=== PATIENT | female | born 1970 | race Caucasian/White ===

== ENCOUNTER 2025-02-13 13:56 | Outpatient (REF) | payer OTHER, SELFPAY ==
[2025-02-13 16:25] LABS: Hematocrit 44.8 % (37.0-47.0); Hemoglobin 15.7 g/dl (12.0-16.0); Mean Corpuscular Hemoglobin 31.7 pg (27.0-33.0); Mean Corpuscular Volume 90.3 fL (80.0-98.0); Platelet Count 226 X10*3/uL (160-400); Red Blood Count 4.96 X10*6/uL (4.20-5.50); Red Cell Distribution Width 12.9 % (11.0-16.0); White Blood Count 6.7 X10*3/uL (4.8-10.8)
[2025-02-13 17:31] LABS: Vitamin B12 378 pg/mL (200-900)
[2025-02-13 18:04] LABS: Folate 6.3 ng/mL (> or = 4.0)
[2025-02-13 19:19] LABS: Alanine Aminotransferase 10 U/L (0-31); Albumin Level 4.3 g/dL (3.5-5.0); Alkaline Phosphatase 84 U/L (39-117); Anion Gap 12 (12-20); Aspartate Amino Transferase 22 U/L (5-31); Bilirubin Total 0.5 mg/dL (0.0-1.0); Blood Urea Nitrogen 15 mg/dL (9-16); C Reactive Protein < 0.10 mg/dL (< or = 0.50); Calcium 9.6 mg/dL (8.4-10.2); Carbon Dioxide 27 mmol/L (22-29); Chloride 106 mmol/L (96-108); Estimated Glomerular Filt Rate > 60; Glucose Random 76 mg/dL (60-115); Lipase 261 U/L (8-78); Sodium 141 mmol/L (135-145); Total Protein 6.9 g/dL (6.5-8.0)
[2025-02-13 19:26] LABS: TSH reflex Free T4 1.89 uIU/mL (0.32-4.0)
[2025-02-14 09:24] LABS: H Pylori Breath Test Negative (Negative)
[2025-02-14 22:14] LABS: Transglutaminase IgA <1.0 U/mL
[2025-02-18 17:32] LABS: Vitamin D 25-OH, D2 <4 ng/mL; Vitamin D 25-OH, D3 65 ng/mL; Vitamin D 25-OH, Total 65 ng/mL (30-100)
== END 2025-02-13 13:57 | disposition home or self-care (01) ==
LOC: HO.LAB 13:56
PROVIDERS: PCP Internal Medicine; Visit Provider Nurse Practitioner Family
DX: K21.9 Gastro-esophageal reflux disease without esophagitis (principal); R19.7 Diarrhea, unspecified; K58.9 Irritable bowel syndrome, unspecified; E55.9 Vitamin D deficiency, unspecified; R13.12 Dysphagia, oropharyngeal phase; R13.10 Dysphagia, unspecified; R10.13 Epigastric pain; R14.0 Abdominal distension (gaseous); K59.01 Slow transit constipation
CPT/HCPCS: 36415; 80053; 82306; 82607; 82746; 83013; 83690; 84443; 85027; 86140; 86364; 99202

== ENCOUNTER 2025-02-13 13:56 | Outpatient (AMB) | payer OTHER, SELFPAY ==
--- NOTE | 2025-02-13 14:05 | MHC.OFFVIS ---
Vital Signs 02/13/25 14:16 Height 5 ft 4 in Weight 175 lb 0.752 oz BMI 30.0 BP 110/54 L Blood Pressure Location Rt brachial Position Sitting Pulse 66 Pulse Source Pulse Oximeter Pulse Oximetry (%) 96 Oxygen Delivery Method Room Air Intake Visit Reasons: Colonoscopy Screening Intake Note: NEW PATIENT for initial colo screening. FMHx reported. Chief Complaint; C/O constipation and diarrhea intermittently, mucus in stool, N+V intermittently, reflux. Pt also reports hx of dysphagia but also states that this is somewhat per her baseline as she has had uvula complications since adolescence. No additional concerns at this time. Social Welfare Clerk Required: No Accompanied by: Family/Other Allergies carisoprodol [From [employer]] Allergy (Unknown, Unverified 02/13/25 14:05) Unknown codeine Allergy (Unknown, Unverified 02/13/25 14:05) Unknown medroxyprogesterone Allergy (Unknown, Unverified 02/13/25 14:05) Unknown Penicillins Allergy (Unknown, Unverified 02/13/25 14:05) Unknown HPI HPI Colonoscopy Screening: Details: 54 year old? female with past medical history of anxiety, degenerative disc disease, depression, insomnia, dysphagia, odynophagia, GERD, psoriasis is here today for pre colonoscopy screening.? Patient was sent to us by her PCP.? This is her first colonoscopy screening.? 10 years years ago patient reports symptoms of severe acid reflux, unable to hold anything down. Patient lost several lb upper endoscopy was done eventually and patient was found to have gastric ulcers. Patient was placed on treatment. Denies any personal or family history of gastrointestinal disease, colon polyps, or CRC.? Denies history of difficulty with sedation or anesthesia in the past.? Currently patient is experiencing worsening symptoms of acid reflux, ongoing dysphagia and odynophagia. Currently not on any PPI. Patient reports constipation although occasionally patient will have a postprandial loose stools PFSH Medical History (Updated 02/18/25 @ 17:31 by Dee Aranda MANAGER OF INTERNAL AUDIT-) Dysphagia Odynophagia Insomnia Depression Degenerative disc disease, lumbar Anxiety Surgical History (Updated 02/13/25 @ 14:18 by CHRISTIAN Scales) History of esophagogastroduodenoscopy Family History Father Stomach cancer Social History Alcohol intake: current Comment: Rare occasions Patient Tobacco Use Status: Current everyday Tobacco user Cigarette Packs Per Day: 1 Review of Systems Const Denies weight gain and Denies weight loss ENT Reports no additional complaints, Reports dysphagia and Denies odynophagia Card Reports no additional complaints Resp Reports no additional complaints GI Reports abdominal pain (Epigastric), Denies belching, Denies melena, Reports bloating, Denies change in bowel habits, Reports constipation, Reports dysphagia, Denies excessive flatus, Denies dyspepsia, Reports heartburn, Denies diarrhea, Reports loose stools, Denies nausea, Denies odynophagia and Denies vomiting Reports no additional complaints Musc Reports no additional complaints Neuro Reports no additional complaints Psych Reports no additional complaints Endo Reports no additional complaints Physical Exam Vital Signs: Last Vital Signs Pulse 66 02/13/25 14:16 BP 110/54 L 02/13/25 14:16 Pulse Ox 96 02/13/25 14:16 Oxygen Delivery Method Room Air 02/13/25 14:16 BMI result Body Mass Index 30.0 Const General: healthy appearing, no acute distress and well developed Nutritional Appearance: well nourished and obese Orientation/consciousness: patient oriented x3 Resp Effort & Inspection: normal respiratory effort, able to speak in complete sentences, no tracheal deviation and symmetric chest movement Auscultation: clear to auscultation bilaterally Cardio Rate: regular rate GI Inspection: Yes normal to inspection, No distended and Yes obesity Palpation (GI): Soft to palpation, not firm, nontender and No hepatosplenomegaly present Auscultation: normal bowel sounds General: Yes no CVA tenderness Back/Spine/Pelvis Back: no CVA tenderness Skin General skin exam: elasticity normal, turgor normal and dry skin Neuro General: patient oriented x3 Psych Appearance: grossly normal Mental Status: mental status grossly normal Assessment & Plan Assessment & Plan (1) Dysphagia: Code(s): R13.10 - Dysphagia, unspecified Category: Medical Qualifiers: Dysphagia type: oropharyngeal phase Qualified Code(s): R13.12 - Dysphagia, oropharyngeal phase (2) Odynophagia: Code(s): R13.10 - Dysphagia, unspecified Category: Medical (3) Postprandial epigastric pain: Code(s): R10.13 - Epigastric pain (4) GERD (gastroesophageal reflux disease): Code(s): K21.9 - Gastro-esophageal reflux disease without esophagitis Qualifiers: Esophagitis presence: esophagitis presence not specified Qualified Code(s): K21.9 - Gastro-esophageal reflux disease without esophagitis (5) Postprandial abdominal bloating: Code(s): R14.0 - Abdominal distension (gaseous) (6) Constipation: Code(s): K59.00 - Constipation, unspecified Qualifiers: Constipation type: slow transit constipation Qualified Code(s): K59.01 - Slow transit constipation Plan Will check lab works, CBC and comprehensive metabolic panel as well as thyroid study. Will do H pylori breath test in the office today. Patient is not on any PPI. We will treat empirically if positive. Will check transglutaminase, lipase. Patient reports postprandial loose stools, however for the most part she is constipated. Will check CRP and fecal calprotectin. Will check her lipase to make sure she does not have chronic pancreatitis. Patient will be sent for upper GI series with barium swallow. She will start taking senna daily to help her move her bowels. Patient will call our office if you have any GI concerning symptoms. Follow-up in 3 months, sooner on as needed basis. She is agreeable to this plan and verbalizes understanding of instructions. She was given the opportunity to ask questions and all questions answered. Thank you for allowing me to participate in her care Orders: Orders Comprehensive Met. Panel 02/13/25 K21.9 - Gastro-esophageal reflux disease without esophagitis Complete Blood Count no Diff 02/13/25 K21.9 - Gastro-esophageal reflux disease without esophagitis TSH reflex Free T4 02/13/25 K59.00 - Constipation, unspecified Vitamin D 25-OH (D2 and D3) 02/13/25 E55.9 - Vitamin D deficiency, unspecified H Pylori Breath Test 02/13/25 K21.9 - Gastro-esophageal reflux disease without esophagitis Transglutaminase IgA 02/13/25 R10.9 - Unspecified abdominal pain Lipase 02/13/25 R10.9 - Unspecified abdominal pain Vitamin B12 and Folate 02/13/25 R19.7 - Diarrhea, unspecified C Reactive Protein 02/13/25 K58.9 - Irritable bowel syndrome, unspecified Calprotectin, Fecal 02/13/25 R15.9 - Full incontinence of feces FL upper GI w Ba Swallow 02/13/25 K21.9 - Gastro-esophageal reflux disease without esophagitis Medications: New sennosides (Natural Senna Laxative) 17.2 mg (2 x 8.6 mg) PO BEDTIME 60 tabs 3RF constipation K59.00 - Constipation, unspecified pantoprazole take one tablet half an hour before breakfast 40 mg PO DAILY 30 tabs 2RF K21.9 - Gastro-esophageal reflux disease without esophagitis Coding Level of Care Code New Pt Level 4 (58686) Diagnoses Oropharyngeal dysphagia R13.12 Dysphagia type: oropharyngeal phase Odynophagia R13.10 Postprandial epigastric pain R10.13 Gastroesophageal reflux disease, unspecified whether esophagitis present K21.9 Esophagitis presence: esophagitis presence not specified Postprandial abdominal bloating R14.0 Slow transit constipation K59.01 Constipation type: slow transit constipation Time Spent (min) 50 Comment 35 minute spent with patient and additional 15 minutes spent reviewing her records
[2025-02-13 14:16] VITALS: BP 110/54; PULSE 66; O2SAT 96
== END 2025-02-13 15:27 | disposition home or self-care (01) ==
PROVIDERS: PCP Internal Medicine; Visit Provider Nurse Practitioner Family
DX: R13.12 Dysphagia, oropharyngeal phase (principal); R13.10 Dysphagia, unspecified; R10.13 Epigastric pain; K21.9 Gastro-esophageal reflux disease without esophagitis; R14.0 Abdominal distension (gaseous); K59.01 Slow transit constipation
CPT/HCPCS: 99204

== ENCOUNTER 2025-02-15 10:27 | Outpatient (REF) | payer OTHER, SELFPAY | END 2025-02-15 10:28 | disposition home or self-care (01) | LOC: HO.LAB 10:27 | PROVIDERS: PCP Internal Medicine; Visit Provider Nurse Practitioner Family | DX: Z13.89 Encounter for screening for other disorder (principal) ==

== ENCOUNTER 2025-02-16 17:20 | Outpatient (REF) | payer OTHER, SELFPAY ==
[2025-02-24 04:24] LABS: Pancreatic Elastase-1 595 mcg/g (>200)
== END 2025-02-16 17:21 | disposition home or self-care (01) ==
LOC: HO.LNP 17:20
PROVIDERS: Visit Provider Nurse Practitioner Family
DX: R10.9 Unspecified abdominal pain (principal)
CPT/HCPCS: 82656

== ENCOUNTER 2025-05-16 09:01 | Outpatient (REF) | payer OTHER, SELFPAY ==
--- OUTSIDE RECORDS SUMMARY | 2023-05-27 07:00 | XMS_ITS | Continuity of Care Document ---
Author Organization [facility] MD VELÁSQUEZ Address [address] [place] [address] [address] [place] [address] Phone Care Team Providers Care Cash Applications Analyst Name Role Phone Kim Talbert MD, FACS, RVT Unavailable Unavailable Procedures Procedure Date Duplex Scan-extrem Veins; Comp Offic Cons New/estab Mod 40 Mi Advance Directives Directive Yes / No Effective Date File Name No Information Encounters Encounter Description Practice Location Reason(s) For Visit Diagnoses Date Provider Providers Copied on Encounter [facility], [address] [place] [address] Dr Toussaint [address], [id number], tel:[phone] [facility] [place] Chronic venous htn w oth comp of bilateral low extrm 3 Bryn Gaffney. [address] [facility] [address], [place], [address], [place]. tel:[phone] Referring Provider: Mk Sands, [address] [facility] [address], [place], [address]. tel:[phone] Offic Cons New/estab Mod 40 Ne [facility] MD [facility], [address] [place] [address] Dr Toussaint [address]Farhan [place], [id number], tel:[phone] [facility] [place] Pain in right lower legPain in left lower legPain in right legPain in left legRestless legs syndromeFlail joint, unspecified jointCramp and spasm 3 Bryn JUARES FACS RVT RPVI Kim Gaffney. [address] [facility], [address], [place], [address], [place]. tel:[phone] Referring Provider: Mk Douglass MD M, [address] [facility] [address], [place], [address]. tel:[phone] Family History Family Member Type Diagnosis Age At Onset No Information Payers Payer name Insurance type Covered green party ID Authoriza tineeru(s) Self Pay 09 Social History Type Description Quantity Date Captured Comments Sex Female Smoking Status No Information Chief Complaint And Reason For Visit No Information Reason For Referral Reason For Referral No Information Plan Of Treatment Date Type Action Status Goal Diet education completed Goal Tobacco cessation counseling completed Referral Ordered: Weight management: Referral to physician timeframe: 3 Months (related to Body mass index (BMI) 29.0-29.9, adult) ordered History Of Present Illness Encounter Date Complaint History Of Prese nt Illness No Information Functional Status Date Functional Assessmen t No Information Instructions Date Instruction Additional Infor mation Diet education Related to Body mass index (BMI) 29.0-29.9, adult Giving Encouragement to exercise Related to Body mass index (BMI) 29.0-29.9, adult Lifestyle education Related to B eduardo mass index (BMI) 29.0-29.9, adult Compression stocking usage as conservative measure Related to Pain in right lower leg Patient education booklet given Related to Pain in right lower leg Assessments Type Assessment Date No Information Patient Care Teams Name Effective Dates (start - stop) Status Members No Information
--- NOTE | ~2025-05-16 | FL_ITS ---
EXAMINATION: XR FLUOROSCOPY UPPER GI SERIES CLINICAL INFORMATION: Patient complaining of food getting episodically stuck in upper esophagus; globus sensation; GERD. COMPARISON: None TECHNIQUE: Fluoroscopic air contrast upper GI examination was performed utilizing standard techniques with thin and thick barium and effervescent granules. Numerous spot images were obtained. Several fluoroscopic image hold cine sequences were also obtained. FINDINGS: UPPER GI SERIES: Lateral cine images of the oropharynx and hypopharynx demonstrate normal swallow mechanism with normal epiglottic inversion and soft palate elevation. No laryngeal penetration, glottic or subglottic aspiration identified. No nasopharyngeal reflux present. Hypopharyngeal structures appear normal without evidence of mass or diverticulum. There was no significant cricopharyngeal achalasia. Dual and single contrast images of the esophagus demonstrate normal caliber, contour, and mucosal pattern. No evidence of stricture, mass, or ulcerations identified. Esophageal peristalsis was minimally disordered. Small type I hiatus hernia. Mild gastroesophageal reflux seen during the course of the examination. Dual contrast and single contrast images of the stomach demonstrated normal contour and mucosal pattern without evidence of mass or gross ulceration. Mildly thickened gastric rugal folds observed, suggesting mild gastritis. Contrast freely passed into the gastric antrum and duodenal bulb without delay. Single and air-contrast images of the duodenal bulb demonstrate no abnormality. The duodenal sweep has a normal appearance, course, and mucosal fold appearance. There is a tiny third segment duodenal diverticulum. FLUOROSCOPY TIME: 3 minutes 36 seconds Number of Spot Images:10 Number of cines obtained: 13 DOSE AREA PRODUCT: 3638 uGy-m2 (microgray-meter squared) FL/FL upper GI w air w Ba Swallow IMPRESSION: 1. Small type I hiatus hernia. 2. Minimally disordered esophageal peristalsis. 3. Mild gastroesophageal reflux observed during the course of the exam. 4. Mildly thickened gastric rugal folds, suggesting mild gastritis. Electronically signed by: Paul Larson MD 05/16/2025 10:20 AM EDT
--- OUTSIDE RECORDS SUMMARY | 2025-05-16 09:21 | XMS_ITS | Clinical Summary ---
Author Organization [facility] Address [address] [place] [address] Phone Care Team Providers Care Auto Mechanic Supervisor Name Role Phone Mk Douglass MD Primary Care Provider [phone] Encounters Date Type Department Care Team Description 04/24/2025 1:15 PM EDT - 04/24/2025 11:59 PM EDT [facility] at [address] [address] Encounter for screening mammogram for breast cancer Discharge Disposition: Home or Self Care 04/11/2025 Lab Requisition [facility] - Main Lab [address] [facility] [place] [address] Alesia Danielson MD Encounter for gynecological examination (general) (routine) without abnormal findings from Last 3 Months Family History Medical History Relation Name Comments Breast cancer Mother's Sister Relation Name Status Comments Mother's Sister Alive Social History Tobacco Use Types Packs/Day Years Used Date Smoking Tobacco: Never Assessed Comments No Sex and Gender Information Value Date Recorded Sex Assigned at Not on file Legal Sex Female 9:11 AM EST Gender Identity Not on file Sexual Orientation Not on file Obstetrics History Para Term AB IAB SAB Ectopic Multiple Livin g Live Births 1 Last Filed Vital Signs Vital Sign Reading Time Taken Comments Blood Pressure - - Pulse - - Temperature - - Respiratory Rate - - Oxygen Saturation - - Inhaled Oxygen Concentration - - Weight 74.8 kg (165 lb) 04/24/2025 1:48 PM EDT Height 162.6 cm (5' 4 ) 04/24/2025 1:48 PM EDT Body Mass Index 28.32 04/24/2025 1:48 PM EDT Plan of Treatment Health Maintenance Due Date Last Done Comments Hepatitis B Vaccines (1 of 3 - 19+ 3-dose series) 1987 Pneumococcal Vaccine: 50+ Years (2 of 2 - PCV) 2018 02/16/2017 Zoster Vaccines (1 of 2) 2018 Colorectal Cancer Screening: Colonoscopy 10/12/2022 Depression Screening 10/12/2022 HIV Screening 10/12/2022 Hepatitis C Screening 10/12/2022 Social Influencers of Health Screening 10/12/2022 COVID-19 Vaccine (3 - 2023-2 5 season) 2024 07/23/2021, 07/02/2021 Influenza Vaccine (#1) 2025 6, 09/16/2007 DTaP,Tdap,and Td Vaccines (3 - Td or Tdap) 02/16/2027 02/16/2017, 07/10/2006 Breast Cancer Screening 04/24/2027 04/24/20, 12/25/2023 Cervical Cancer Screening: P ap Smear 04/10/2028 04/10/2025 HIB Vaccines Aged Out No longer eligi ble based on patient's age to complete this topic HPV Vaccines Aged Out No longer eligi ble based on patient's age to complete this topic Hepatitis A Vaccines Aged Out No long er eligible based on patient's age to complete this topic IPV Vaccines Aged Out No longer eligi ble based on patient's age to complete this topic MMR Vaccines Aged Out No longer eligi ble based on patient's age to complete this topic Meningococcal ACWY Vaccine Aged Out N o longer eligible based on patient's age to complete this topic Meningococcal B Vaccine Aged Out No l onger eligible based on patient's age to complete this topic RSV Immunization Patients Under 20 months Aged Out No longer eligible b ased on patient's age to complete this topic Varicella Vaccines Aged Out No longer eligible based on patient's age to complete this topic Procedures Procedure Name Priority Date/Time Associated Diagnosis Comments MG MAMMO DIGITAL SCREENING W WEI BILAT Routine 04/24/2025 1:49 PM EDT Encounter for screening mammogram for breast cancer PAP SMEAR Routine 04/10/2025 12:00 AM EDT Encounter for gynecological examination (general) (routine) without abnormal findings from Last 3 Months Results * MG Mammo Digital Screening w Wei bilat (04/24/2025 1:49 PM EDT) Anatomical Region Laterality Modality Breast Bilateral Mammography 04/25/2025 8:45 AM EDT Impressions 04/25/2025 8:47 AM EDT No mammographic evidence of malignancy. A negative mammogram in the presence of a clinically suspicious palpable abnormality does not preclude the possibility of malignancy or alter the indications for biopsy. PQRI CPT II 3341F Code 85973, 58891 PQRI 225 CPT II 7025F TISSUE DENSITY: The breasts are almost entirely fatty. (BI-RADS Category A) IMPRESSION: Benign. BI-RADS CATEGORY: 1 - NEGATIVE RECOMMENDATION: Screening bilateral mammogram is recommended in 1 year. Mammo Location: [facility], [address] [place] [address] -------- FINAL REPORT -------- Dictated By: Alverto Baum Dictated Date: 04/25/2025 08:45 ET Assigned Physician: Alverto Baum Reviewed and Electronically Signed By: Alverto Baum Signed Date: 04/25/2025 08:47 ET Workstation ID: [id number] Transcribed By: Self Edit Transcribed Date: 04/25/2025 08:45 ET Narrative 04/25/2025 8:47 AM EDT CLINICAL: The patient is a 54 years Female presenting for routine screening mammography. The patient has a family history of breast cancer involving a paternal aunt. COMPARISON: 12/21/2023 and 02/17/2019. TECHNIQUE: Full-field digital mammography of the breasts bilaterally consisting of tomosynthesis in MLO and CC projection is performed in the [employer] 2000-D unit. Computer aided detection utilizing the iCAD system was utilized. FINDINGS: The breasts are again seen to be largely fatty replaced. There is no cluster of microcalcifications, mass, or area of architectural distortion. There is no skin thickening or nipple retraction. Procedure Note Alverto Baum MD - 04/25/2025 CLINICAL: The patient is a 54 years Female presenting for routinescreening mammography. The patient has a family history of breast cancerinvolving a paternal aunt. COMPARISON: 12/21/2023 and 02/17/2019. TECHNIQUE: Full-field digital mammography of the breasts bilaterallyconsisting of tomosynthesis in MLO and CC projection is performed in theCollective [employer]he 2000-D unit. Computer aided detection utilizing the KS12Dsystem was utilized. FINDINGS: The breasts are again seen to be largely fatty replaced. Thereis no cluster of microcalcifications, mass, or area of architecturaldistortion. There is no skin thickening or nipple retraction. IMPRESSION: No mammographic evidence of malignancy. A negative mammogram in the presence of a clinically suspicious palpableabnormality does not preclude the possibility of malignancy or alter theindications for biopsy. PQRI CPT II 3341F Code 29478, 18172 PQRI 225 CPT II 7025F TISSUE DENSITY: The breasts are almost entirely fatty. (BI-RADS CategoryA) IMPRESSION: Benign. BI-RADS CATEGORY: 1 - NEGATIVE RECOMMENDATION: Screening bilateral mammogram is recommended in 1 year. Mammo Location: [facility], [address] [place] [address] -------- FINAL REPORT -------- Dictated By: Alverto Baum Dictated Date: 04/25/2025 08:45 ET Assigned Physician: Alverto Buam Reviewed and Electronically Signed By: Alverto Baum Signed Date: 04/25/2025 08:47 ET Workstation ID: [id number] Transcribed By: Self Edit Transcribed Date: 04/25/2025 08:45 ET us Self Referral Sppl IMG BI PROCEDURES Final Resul t * Pap smear (04/10/2025 12:00 AM EDT) Interpretation Negative for intraepithelial lesion or malignancy 04/13/2025 1:49 PM EDT [facility] General Categorization Negative 04/13/2025 1:49 PM EDT [facility] Specimen Adequacy Satisfactory for evaluation, endocervical/espinoza sformation zone component present 04/13/2025 1:49 PM EDT [facility] Pap Methodology Liquid Based Pap Test 04/13/2025 1:49 PM EDT [facility] Disclaimer The Pap test is a screening test which carries an inherent false negative rate. These test results should be correlated with the patient's clinical findings and history. This Pap test was processed using an automated screening system. Technical cytopathology services provided by [facility], at [address] [place] [address] (CLIA # [id number]/Ana Cristina Witt MD, Tool Inspector.) 04/13/2025 1:49 PM EDT [facility] Console Pap Interpretation Reported 04/13/2025 1:49 PM EDT [facility] Brushing/Spatula Cervix uteri structure / Unknown 04/10/2025 04/11/2025 7:07 AM EDT us Alesia Danielson MD LAB CYTOLOGY ORDERABLES Final Result [facility] [address] [place] [address], from Last 3 Months Insurance [facility] Care Teams Auto Mechanic Supervisor Relationship Specialty Start Date End Date Mk Douglass MD [address] [place] [id number] PCP - General Internal Medicine 04/24/25
== END 2025-05-16 09:02 | disposition home or self-care (01) ==
LOC: HO.XRAY 09:01
PROVIDERS: PCP Internal Medicine; Visit Provider Nurse Practitioner Family
DX: K21.9 Gastro-esophageal reflux disease without esophagitis (principal)
CPT/HCPCS: 74246

== ENCOUNTER → 2025-05-16 09:03 | Outpatient (BNV) | payer OTHER, SELFPAY | PROVIDERS: PCP Internal Medicine; Visit Provider Radiology Diagnostic Radiology | DX: K44.9 Diaphragmatic hernia without obstruction or gangrene (principal) | CPT/HCPCS: 74246 ==

== ENCOUNTER 2025-05-19 11:57 | Outpatient (AMB) | payer OTHER, SELFPAY ==
--- NOTE | 2025-05-19 12:04 | MHC.OFFVIS ---
Vital Signs 05/19/25 12:07 Height 5 ft 4 in Weight 175 lb BMI 30.0 BP 114/56 L Blood Pressure Location Lt brachial Position Sitting Pulse 73 Pulse Oximetry (%) 98 Oxygen Delivery Method Room Air Intake Visit Reasons: 3 mos FUV. Discuss colo/egd Intake Note: Patient 3 month follow up EGD/Colonoscopy discuss. Patient follow up Patient cc: abdominal pain with bloating, acid reflux with some burning sensation and med is helping, and swallowing difficulty on and off. Gis Analyst Developer Required: No Accompanied by: Spouse Allergies carisoprodol (From [employer]) Allergy (Unknown, Verified 05/19/25 12:07) Unknown codeine Allergy (Unknown, Verified 05/19/25 12:07) Unknown medroxyprogesterone Allergy (Unknown, Verified 05/19/25 12:07) Unknown Penicillins Allergy (Unknown, Verified 05/19/25 12:07) Unknown HPI HPI 3 mos FUV. Discuss colo/egd: Details: LAST VISIT: Dysphagia Odynophagia Postprandial epigastric pain GERD (gastroesophageal reflux disease) Postprandial abdominal bloating Constipation Plan Will check lab works, CBC and comprehensive metabolic panel as well as thyroid study. Will do H pylori breath test in the office today. Patient is not on any PPI. We will treat empirically if positive. Will check transglutaminase, lipase. Patient reports postprandial loose stools, however for the most part she is constipated. Will check CRP and fecal calprotectin. Will check her lipase to make sure she does not have chronic pancreatitis. Patient will be sent for upper GI series with barium swallow. She will start taking senna daily to help her move her bowels. Patient will call our office if you have any GI concerning symptoms. Follow-up in 3 months, sooner on as needed basis. She is agreeable to this plan and verbalizes understanding of instructions. She was given the opportunity to ask questions and all questions answered. ? Thank you for allowing me to participate in her care Orders Comprehensive Met. Panel 02/13/25 K21.9 Complete Blood Count no Diff 02/13/25 K21.9 TSH reflex Free T4 02/13/25 K59.00 Vitamin D 25-OH (D2 and D3) 02/13/25 E55.9 H Pylori Breath Test 02/13/25 K21.9 Transglutaminase IgA 02/13/25 R10.9 Lipase 02/13/25 R10.9 Vitamin B12 and Folate 02/13/25 R19.7 C Reactive Protein 02/13/25 K58.9 Calprotectin, Fecal 02/13/25 R15.9 FL upper GI w Ba Swallow 02/13/25 K21.9 New sennosides (Natural Senna Laxative) 17.2 mg (2 x 8.6 mg) PO BEDTIME 60 tabs 3RF constipation K59.00 pantoprazole take one tablet half an hour before breakfast 40 mg PO DAILY 30 tabs 2RF K21.9 TODAY'S VISIT Patient is here today for follow-up and to discuss lab and upper GI series. Patient also never had colonoscopy we will discuss going for procedure as well as going for upper endoscopy. Mild reflux identified with disorganized 1st doses on upper GI. All of her blood work was normal except for elevated lipase. Patient change her diet. She is avoiding dietary triggers. Currently if she is taking pantoprazole in her symptoms of acid reflux are suppressed. Patient denies dyspepsia, dysphagia or odynophagia. Denies melena, hematochezia, unintentional weight loss or ribbon like stools. Patient reports that she is moving her bowels better now that she is taking Senokot. Patient reports that no longer she has mucous in her stool since starting the senna. Patient is trying to follow low FODMAP diet as much as she can. Still has occasional left lower quadrant pain. Patient saw her OBGYN provider and was told that she no longer has fibroid. [facility] Medical History (Updated 02/18/25 @ 17:31 by Dee Aranda [facility]) Dysphagia Odynophagia Insomnia Depression Degenerative disc disease, lumbar Anxiety Surgical History History of esophagogastroduodenoscopy Family History Father Stomach cancer Social History Alcohol intake: current Comment: Rare occasions Patient Tobacco Use Status: Current everyday Tobacco user Cigarette Packs Per Day: 1 Review of Systems Const Denies weight gain and Denies weight loss ENT Reports no additional complaints, Reports dysphagia and Denies odynophagia Card Reports no additional complaints Resp Reports no additional complaints GI Reports abdominal pain (Epigastric), Denies belching, Denies melena, Reports bloating, Denies change in bowel habits, Reports constipation, Reports dysphagia, Denies excessive flatus, Denies dyspepsia, Reports heartburn, Denies diarrhea, Reports loose stools, Denies nausea, Denies odynophagia and Denies vomiting Reports no additional complaints Musc Reports no additional complaints Neuro Reports no additional complaints Psych Reports no additional complaints Endo Reports no additional complaints Physical Exam Vital Signs: Last Vital Signs Pulse 73 05/19/25 12:07 BP 114/56 L 05/19/25 12:07 Pulse Ox 98 05/19/25 12:07 Oxygen Delivery Method Room Air 05/19/25 12:07 BMI result Body Mass Index 30.0 Const General: healthy appearing, no acute distress and well developed Nutritional Appearance: well nourished and obese Orientation/consciousness: patient oriented x3 Resp Effort & Inspection: normal respiratory effort, able to speak in complete sentences, no tracheal deviation and symmetric chest movement Auscultation: clear to auscultation bilaterally Cardio Rate: regular rate GI Inspection: Yes normal to inspection, No distended and Yes obesity Palpation (GI): Soft to palpation, not firm, nontender and No hepatosplenomegaly present Auscultation: normal bowel sounds General: Yes no CVA tenderness Back/Spine/Pelvis Back: no CVA tenderness Skin General skin exam: elasticity normal, turgor normal and dry skin Neuro General: patient oriented x3 Psych Appearance: grossly normal Mental Status: mental status grossly normal Results Reviewed Results Reviewed: Laboratory Tests 02/13/25 02/13/25 02/16/25 15:00 15:24 10:15 AST 22 ALT 10 Alkaline Phosphatase 84 C-Reactive Protein < 0.10 Lipase 261 H Vitamin B12 378 25-OH Vitamin D Total 65 Folate 6.3 TSH 1.89 Stool Pancreat Elastase 595 Tiss Transglutamin IgA <1.0 H. pylori Breath Test Negative UPPER GI SERIES WITH BARIUM SWALLOW IMPRESSION: 1. Small type I hiatus hernia. 2. Minimally disordered esophageal peristalsis. 3. Mild gastroesophageal reflux observed during the course of the exam. 4. Mildly thickened gastric rugal folds, suggesting mild gastritis. Assessment & Plan Assessment & Plan (1) Odynophagia: Code(s): R13.10 - Dysphagia, unspecified Category: Medical (2) Dysphagia: Code(s): R13.10 - Dysphagia, unspecified Category: Medical Qualifiers: Dysphagia type: oropharyngeal phase Qualified Code(s): R13.12 - Dysphagia, oropharyngeal phase (3) Postprandial epigastric pain: Code(s): R10.13 - Epigastric pain (4) Gastroesophageal reflux disease: Code(s): K21.9 - Gastro-esophageal reflux disease without esophagitis Qualifiers: Esophagitis presence: esophagitis presence not specified Qualified Code(s): K21.9 - Gastro-esophageal reflux disease without esophagitis (5) Constipation: Code(s): K59.00 - Constipation, unspecified Qualifiers: Constipation type: slow transit constipation Qualified Code(s): K59.01 - Slow transit constipation Plan Patient will continue taking pantoprazole daily. Avoid dietary triggers and late night snacking. Staying upright for minimal 3 hours after meals discussed with patient. Patient will continue taking Dulcolax. Increase fluid intake and activity to promote better bowel motility. All her lab work was discussed with her today. Patient will be going for upper endoscopy in her 1st colonoscopy. Patient denies any issues with anesthesia in the past. No history of sleep apnea. Not on any anticoagulation medication. Denies any cardiac or respiratory symptoms. What to expect before during and after procedure discussed with patient. Stressed the importance of good bowel prep and clear liquid diet day before procedure. Patient will follow-up after the procedure, sooner on as needed basis. She is agreeable to this plan and verbalizes understanding of instructions. She was given the opportunity to ask questions and all questions answered. Thank you for allowing me to participate in her care Coding Level of Care Code Est Pt Level 4 (38413) Complex EM visit Add On G2211 Diagnoses Odynophagia R13.10 Oropharyngeal dysphagia R13.12 Dysphagia type: oropharyngeal phase Postprandial epigastric pain R10.13 Gastroesophageal reflux disease, unspecified whether esophagitis present K21.9 Esophagitis presence: esophagitis presence not specified Slow transit constipation K59.01 Constipation type: slow transit constipation Time Spent (min) 40 Comment 25 minutes spent with patient and additional 15 minutes spent reviewing her records
[2025-05-19 12:07] VITALS: BP 114/56; PULSE 73; O2SAT 98
--- OUTSIDE RECORDS SUMMARY | 2025-05-19 12:21 | XMS_ITS | Clinical Summary ---
Author Organization [facility] Address [address] [place] [address] Phone Care Team Providers Care Legal Document Assistant Name Role Phone Mk Douglass MD Primary Care Provider [phone] Encounters Date Type Department Care Team Description 04/24/2025 1:15 PM EDT - 04/24/2025 11:59 PM EDT [facility] at [address] [address] Encounter for screening mammogram for breast cancer Discharge Disposition: Home or Self Care 04/11/[address] [facility] - Main Lab [address] [facility] [place] [address] Alesia Danielson MD Encounter for [...] for biopsy. PQRI CPT II 3341F Code 31538, 49495 PQRI 225 CPT II 7025F TISSUE DENSITY: The breasts are almost entirely fatty. (BI-RADS Category A) IMPRESSION: Benign. BI-RADS CATEGORY: 1 - NEGATIVE RECOMMENDATION: Screening bilateral mammogram is recommended in 1 year. Mammo Location: [facility], [address] [place] [address] -------- FINAL REPORT -------- Dictated By: Alverto Baum Dictated Date: 04/25/2025 08:45 ET Assigned Physician: Alverto Baum Reviewed and Electronically Signed By: Alverto Baum Signed Date: 04/25/2025 08:47 ET Workstation ID: [id number] Transcribed By: Self Edit Transcribed Date: 04/25/2025 [...] and CC projection is performed in the [employer] 2000-D unit. Computer aided detection utilizing the [...] MLO and CC projection is performed in the[employer]Activity[employer]he 2000-D unit. Computer aided detection utilizing the [employer] SacDsystem was utilized. FINDINGS: The breasts are again [...] for biopsy. PQRI CPT II 3341F Code 82648, 06512 PQRI 225 CPT II 7025F TISSUE DENSITY: The breasts are almost entirely fatty. (BI-RADS CategoryA) IMPRESSION: Benign. BI-RADS CATEGORY: 1 - NEGATIVE RECOMMENDATION: Screening bilateral mammogram is recommended in 1 year. Mammo Location: [facility], [address] [place] [address] -------- FINAL REPORT -------- Dictated By: Alverto Baum Dictated Date: 04/25/2025 08:45 ET Assigned Physician: Alverto Baum Reviewed and Electronically Signed By: Alverto Baum Signed Date: 04/25/2025 08:47 ET Workstation ID: [id number] Transcribed By: Self Edit Transcribed Date: 04/25/2025 08:45 ET us Self Referral Sppl IMG BI PROCEDURES Final Resul t * Pap smear (04/10/2025 12:00 AM EDT) Interpretation Negative for intraepithelial lesion or malignancy 04/13/2025 1:49 PM EDT [facility] General Categorization Negative 04/13/2025 1:49 PM EDT [facility] Specimen Adequacy Satisfactory for evaluation, endocervical/espinoza sformation zone component present 04/13/2025 1:49 PM EDT [facility] Pap Methodology Liquid Based Pap Test 04/13/2025 1:49 PM EDT [facility] Disclaimer The Pap test is a screening test which carries an inherent false negative rate. These test results should be correlated with the patient's clinical findings and history. This Pap test was processed using an automated screening system. Technical cytopathology services provided by [facility], at [address] [place] [address] (CLIA # [id number]/Ana Cristina Witt MD, Plumbing Instructor.) 04/13/2025 1:49 PM EDT [facility] Console Pap Interpretation Reported 04/13/2025 1:49 PM EDT [facility] Brushing/Spatula Cervix uteri structure / Unknown 04/10/2025 04/11/2025 7:07 AM EDT us Alesia Danielson MD LAB CYTOLOGY ORDERABLES Final Result [facility] [address] [place] [address], from Last 3 Months Insurance [facility] [employer] Care Teams Legal Document Assistant Relationship Specialty Start Date End Date Mk Douglass MD [address] [place] [id number] PCP - General Internal Medicine 04/24/25
== END 2025-05-19 12:34 | disposition home or self-care (01) ==
LOC: HO.HGI 11:58
PROVIDERS: PCP Internal Medicine; Visit Provider Nurse Practitioner Family
DX: R13.10 Dysphagia, unspecified (principal); R13.12 Dysphagia, oropharyngeal phase; R10.13 Epigastric pain; K21.9 Gastro-esophageal reflux disease without esophagitis; K59.01 Slow transit constipation
CPT/HCPCS: 99214; G2211

== ENCOUNTER → 2025-05-19 11:57 | Outpatient (BNVA) | payer OTHER, SELFPAY | PROVIDERS: PCP Internal Medicine; Visit Provider Nurse Practitioner Family | DX: R10.13 Epigastric pain (principal); K21.9 Gastro-esophageal reflux disease without esophagitis; K59.01 Slow transit constipation | CPT/HCPCS: 99212 ==

== ENCOUNTER 2025-07-17 08:19 | Day surgery (SDC) | payer OTHER, SELFPAY ==
--- OUTSIDE RECORDS SUMMARY | 2025-06-22 13:05 | XMS_ITS | Clinical Summary ---
Author Organization [facility] Address [address] [place] [address] Phone Care Team Providers Care Chemical Waste Management Technician Name Role Phone Mk Douglass MD Primary Care Provider [phone] Encounters Date Type Department Care Team Description 04/24/2025 1:15 PM EDT - 04/24/2025 11:59 PM EDT [facility] at [address] [address] Encounter for screening mammogram for breast cancer Discharge Disposition: Home or Self Care 04/11/2025 Lab Requisition [facility] - Main Lab [address] [facility] [place] [address] Alesia Danielson MD Encounter for [...] 2) 2018 Colorectal Cancer Screening: Colonoscopy 10/12/2022 HIV Screening 10/12/2022 Hepatitis C Screening 10/12/2022 Social Influencers of Health Screening 10/12/2022 COVID-19 Vaccine (3 - 2023-2 5 season) 2024 07/23/2021, 07/02/2021 Depression Screening 11/09/2024 Influenza Vaccine (#1) 2025 6, 09/16/2007 DTaP,Tdap,and Td Vaccines (3 - Td or Tdap) 02/16/2027 02/16/2017, 07/10/2006 Breast Cancer Screening 04/24/2027 04/24/20 25, 12/25/2023 Cervical Cancer Screening: P ap Smear [...] for biopsy. PQRI CPT II 3341F Code 37342, 57188 PQRI 225 CPT II 7025F TISSUE DENSITY: The breasts are almost entirely fatty. (BI-RADS Category A) IMPRESSION: Benign. BI-RADS CATEGORY: 1 - NEGATIVE RECOMMENDATION: Screening bilateral mammogram is recommended in 1 year. Mammo Location: [facility], [facility], [address] [place] [address] -------- FINAL REPORT -------- Dictated By: Alverto Baum Dictated Date: 04/25/2025 08:45 ET Assigned Physician: Alverto Baum Reviewed and Electronically Signed By: Alverto Baum Signed Date: 04/25/2025 08:47 ET Workstation ID: [id number] Transcribed By: Self Edit Transcribed Date: 04/25/2025 [...] and CC projection is performed in the [employer] 2000-D unit. Computer aided detection utilizing the [...] MLO and CC projection is performed in thePhormographe 2000-D unit. Computer aided detection utilizing the G[employer] CloudDsystem was utilized. FINDINGS: The breasts are again [...] for biopsy. PQRI CPT II 3341F Code 52469, 52013 PQRI 225 CPT II 7025F TISSUE DENSITY: The breasts are almost entirely fatty. (BI-RADS CategoryA) IMPRESSION: Benign. BI-RADS CATEGORY: 1 - NEGATIVE RECOMMENDATION: Screening bilateral mammogram is recommended in 1 year. Mammo Location: [facility], [address] [place] [id number] -------- FINAL REPORT -------- Dictated By: Alverto Baum Dictated Date: 04/25/2025 08:45 ET Assigned Physician: Alverto Baum Reviewed and Electronically Signed By: Alverto Baum Signed Date: 04/25/2025 08:47 ET Workstation ID: [id number] Transcribed By: Self Edit Transcribed Date: 04/25/2025 08:45 ET us Self Referral Sppl IMG BI PROCEDURES Final Resul t * Pap smear (04/10/2025 12:00 AM EDT) Interpretation Negative for intraepithelial lesion or malignancy 04/13/2025 1:49 PM EDT [facility] General Categorization Negative 04/13/2025 1:49 PM EDT [facility] Specimen Adequacy Satisfactory for evaluation, endocervical/espinoza sformation zone component present 04/13/2025 1:49 PM EDT [facility] Pap Methodology Liquid Based Pap Test 04/13/2025 1:49 PM EDT [facility] Disclaimer The Pap test is a screening test which carries an inherent false negative rate. These test results should be correlated with the patient's clinical findings and history. This Pap test was processed using an automated screening system. Technical cytopathology services provided by [facility], at [address] [place] [address] (CLIA # [id number]/Ana Cristina Witt MD, [employer] Athlete.) 04/13/2025 1:49 PM EDT [facility] Console Pap Interpretation Reported 04/13/2025 1:49 PM EDT [facility] Brushing/Spatula Cervix uteri structure / Unknown 04/10/2025 04/11/2025 7:07 AM EDT us Alesia Danielson MD LAB CYTOLOGY ORDERABLES Final Result [facility] [address] [place] [address], from Last [address] [facility] Care Teams Chemical Waste Management Technician Relationship Specialty Start Date End Date Mk Douglass MD [address] [place] [id number] PCP - General Internal Medicine 04/24/25
--- NOTE | 2025-07-14 10:54 | HO.ANESPROP2 ---
Documented by User: Bianca Odonnell NP 07/14/25 10:54 HPI - Anesthesia Eval Consult details Narrative: 54 yr old female for upper endoscopy, colonoscopy PMF Active Problems Active Problems: All Active Problems (Updated 02/18/25 @ 17:31 by Dee Aranda, [facility]) Odynophagia (Acute) Dysphagia (Acute) Past Medical History Medical History (Updated 07/17/25 @ 08:46 by Alvin Sanders MD) Smoker Dysphagia Odynophagia Insomnia Degenerative disc disease, lumbar Anxiety Family History Family History Father Stomach cancer Surgical History Surgical History (Updated 07/17/25 @ 08:45 by Perla Hassan RN) Hx of section History of esophagogastroduodenoscopy Social History Social History Are you a primary care team assistant to a significant other at home: No Do you presently have visiting nurse or other home services: No Alcohol intake: current Comment: Rare occasions Patient Tobacco Use Status: Current everyday Tobacco user Tobacco use type: Cigarette Cigarette Packs Per Day: 1 Smoked in Last 30 Days: Yes Patient Interested in Nicotine Replacement: No Have you been hit, kicked, punched, or otherwise hurt by someone within the past year? If so, by whom?: No Are you DNR?: No Advance Directives: No Advance Directives Information Provided: Yes Poor oral hygiene: No Meds Allergies Allergy/AdvReac Type Severity Reaction Status Date / Time carisoprodol (From Soma) Allergy Unknown Unknown Verified 07/17/25 08:31 codeine Allergy Unknown Unknown Verified 07/17/25 08:31 medroxyprogesterone Allergy Unknown Unknown Verified 07/17/25 08:31 Penicillins Allergy Unknown Unknown Verified 07/17/25 08:31 Home Medications ?Medication ?Instructions ?Recorded ?Confirmed ?Last Taken ?Type ascorbic acid 100 mg-zinc sulfate tab PO 02/09/25 Unknown History 200 mg tablet cholecalciferol (vitamin D3) 25 25 mcg PO DAILY 02/09/25 07/17/25 Unknown History mcg (1,000 unit) capsule crisaborole 2 % topical ointment 1 appl topical DAILY 02/09/25 07/17/25 Unknown History (Eucrisa) cyanocobalamin (vitamin B-12) 1,000 mcg PO DAILY 02/09/25 07/17/25 Unknown History 1,000 mcg capsule lorazepam 0.5 mg tablet 0.5 mg PO DAILY PRN Anxiety 02/09/25 07/13/25 Unknown History multivitamin 1 tab PO DAILY 02/09/25 07/17/25 Unknown History cyclosporine 0.05 % eye drops in a 1 drp ophthalmic (eye) Q12H 02/13/25 07/13/25 Unknown History dropperette (Restasis) Exam Height,Weight and Vital Signs: Height 5 ft 4 in Weight 79.379 kg Documented by User: Alvin Sanders MD 07/17/25 08:50 [facility] Past Medical History Medical History (Updated 07/17/25 @ 08:46 by Alvin Sanders MD) Smoker Dysphagia Odynophagia Insomnia Degenerative disc disease, lumbar Anxiety Cognitive capacity: normal Family History Family History Father Stomach cancer Family history of problems with anesthesia: No Surgical History Surgical History (Updated 07/17/25 @ 08:45 by Perla Hassan RN) Hx of section History of esophagogastroduodenoscopy History of Problems with Anesthesia: No Social History Social History Are you a primary care team assistant to a significant other at home: No Do you presently have visiting nurse or other home services: No Alcohol intake: current Comment: Rare occasions Patient Tobacco Use Status: Current everyday Tobacco user Tobacco use type: Cigarette Cigarette Packs Per Day: 1 Smoked in Last 30 Days: Yes Patient Interested in Nicotine Replacement: No Have you been hit, kicked, punched, or otherwise hurt by someone within the past year? If so, by whom?: No Are you DNR?: No Advance Directives: No Advance Directives Information Provided: Yes Poor oral hygiene: No Meds Allergies Allergy/AdvReac Type Severity Reaction Status Date / Time carisoprodol (From [employer]) Allergy Unknown Unknown Verified 07/17/25 08:31 codeine Allergy Unknown Unknown Verified 07/17/25 08:31 medroxyprogesterone Allergy Unknown Unknown Verified 07/17/25 08:31 Penicillins Allergy Unknown Unknown Verified 07/17/25 08:31 Home Medications ?Medication ?Instructions ?Recorded ?Confirmed ?Last Taken ?Type ascorbic acid 100 mg-zinc sulfate tab PO 02/09/25 Unknown History 200 mg tablet cholecalciferol (vitamin D3) 25 25 mcg PO DAILY 02/09/25 07/17/25 Unknown History mcg (1,000 unit) capsule crisaborole 2 % topical ointment 1 appl topical DAILY 02/09/25 07/17/25 Unknown History (Eucrisa) cyanocobalamin (vitamin B-12) 1,000 mcg PO DAILY 02/09/25 07/17/25 Unknown History 1,000 mcg capsule lorazepam 0.5 mg tablet 0.5 mg PO DAILY PRN Anxiety 02/09/25 07/13/25 Unknown History multivitamin 1 tab PO DAILY 02/09/25 07/17/25 Unknown History cyclosporine 0.05 % eye drops in a 1 drp ophthalmic (eye) Q12H 02/13/25 07/13/25 Unknown History dropperette (Restasis) Exam Airway Mallampati Class: III TM Dist: >3cm Neck ROM: Full Loose/Missing/Broken Teeth: No Heart: RRR Lungs: Cta Assessment and Plan Assessment Anesthesia Assessment: Anesthesia Plan Discussed Final Anesthetic Review Family History of Problems with Anesthesia: No History of Problems with Anesthesia: No NPO: Yes ASA Class: II Final Preanesthetic Review: No Changes in Pt Med Stat, Meds/Allgs Chart Reviewed, Consent Obtained/Reviewed and Anes Risks/Benef Reviewed Patient Risk: Low Procedure Risk: Low Anesthetic Plan Anesthetic Plan: MAC: Disposition: Standard PACU
--- NOTE | 2025-07-17 07:30 | P.HPSUR_ITS ---
Pre-Procedural Eval Section A - 24 Hr Update-Section A only Date of Service: 07/17/25 The patient is an INPATIENT: No The patient has been examined within 24 hours of the surgical procedure. The History & Physical has been completed within 30 days and I have reviewed it.: No Section B - Complete if H&P > 30 days Chief Complaint: screening, GERD, dysphagia Relevant Family History (Specify if Yes): Yes Relevant Social History: Tobacco Use Present Medications: see Short Stay Collaborative assessment Medical History: Significant History (Dysphagia Odynophagia Insomnia Depression Degenerative disc disease, lumbar Anxiety) History of Previous Operations: Relevant previous surgery/procedure and date(s) (History of upper endoscopy) Allergies: Allergies Allergy/AdvReac Type Severity Reaction Status Date / Time carisoprodol (From [employer]) Allergy Unknown Unknown Verified 05/19/25 12:07 codeine Allergy Unknown Unknown Verified 05/19/25 12:07 medroxyprogesterone Allergy Unknown Unknown Verified 05/19/25 12:07 Penicillins Allergy Unknown Unknown Verified 05/19/25 12:07 Review of Systems Sugical H&P ROS: Negative: Constitution, Cardiovascular, Respiratory and Gastrointestinal Exam Surgical H&P Exam: Normal: Heart, Normal: Lungs, Normal: Extremities and Normal: Abdomen Plan Diagnosis/Plan: Unchanged I have reviewed the history and physical and performed a pertinent physical examination on my patient. No changes have occurred unless specified. Time Spent With Patient Time: Total time managing care of this patient today ____ minutes.
[2025-07-17 08:26] VITALS: BMI 28.5
[2025-07-17] MEDS: Lactated Ringers 1,000 ML 100 ML IVCONT (08:36)
[2025-07-17 08:43] VITALS: BP 117/69; PULSE 76; RESP 18; TEMP 36.6; O2SAT 97
--- NOTE | 2025-07-17 09:58 | P.OPN-COLO_ITS ---
Colonoscopy Operative Note Operative Note Date of Service: 07/17/25 Narrative: FLEXIBLE TRANSORAL UPPER GASTROINTESTINAL ENDOSCOPY WITH BIOPSIES AND COLONOSCOPY TILL CECUM WITH SNARE POLYPECTOMY, SUBMUCOSAL INJECTION AND HEMOCLIP PLACEMENT Pre-op diagnosis: Colon cancer screening (first colon), GERD Post-op diagnosis: GERD, Gastritis, Colon Polyps, Diverticulosis, hemorrhoids Endoscopist:? Jan Manuel MD Anesthesia:?MAC UPPER ENDOSCOPY Consent: Indications for the procedure and potential complications of bleeding, perforation, reaction to medications and missed diagnosis were discussed with the patient and informed consent was obtained. Instrument: Olympus GIF H 190 mid size upper endoscope Monitoring: Vital signs and clinical assessment, continuous EKG monitoring, Pulse oximetry, Carbon Dioxide monitoring and blood pressure monitoring were done throughout the procedure. Procedure: The patient was placed in the left lateral decubitis position and pre-procedure medications were administered and a bite block was placed. The endoscope was inserted into the mouth and advanced under direct vision to the third part of duodenum. A careful inspection was made as the upper endoscope was withdrawn including a retroflexed examination of the proximal stomach; Findings and interventions are described below. Findings: Larynx: Normal Esophagus: GE junction at 34 cms, small hiatal hernia 34 to 36 cms. Friable appearing esophageal mucosa - biopsies were obtained No esophagitis or Ling's. Stomach: Moderate diffuse gastric erythema - biopsies were obtained from the antrum. Grade 2 flap valve on retroflexed examination of the cardia. Duodenum: Normal bulb and descending duodenum Intervention: Biopsies as noted above COLONOSCOPY PROCEDURE NOTE Instrument: Olympus PCF H 190 L variable stiffness pediatric colonoscope Monitoring: Vital signs and clinical assessment, intermittent blood pressure monitoring, continuous EKG monitoring, Pulse oximetry and Carbon Dioxide monitoring were done throughout the procedure. Please see anesthesia flowsheet. Colon withdrawl time was 48 minutes. Procedure: The patient was placed in the left lateral decubitis position and pre-procedure medications were administered. After a digital rectal examination of the ano-rectum, the video colonoscope was inserted into the rectum and advanced through the colon to the cecum. The colonoscope was slowly withdrawn in a retrograde panoramic fashion and the colon mucosa was carefully examined including a retroflexed view of the rectum. Findings and interventions are described below. Procedure Difficulty: without difficulty Findings: Terminal Ileum: Not evaluated Cecum: Normal Ascending Colon: A 10 - 12 mm sessile polyp in the distal AC - removed with a hot snare. A 7-8 mm sessile polyp in the distal AC - removed with a hot snare Transverse Colon: Normal Descending Colon: A 7-8 mm sessile polyp - removed with a hot snare Sigmoid Colon: A 12-15 mm sessile polyp - removed with a hot snare and polyp was not retrieved. Moderate diverticulosis Rectum: A 2 cms sessile polyp at 8 cms - removed with a hot snare. A 5 cms villous appearing polyp with a broad base at 6 cms. Polyp was removed piecemeal with a hot snare. Polypectomy site was closed with 3 hemoclips and marked by Georgie ink. Ano-rectum: Small internal hemorrhoids Colon preparation: Good after some irrigation. [place] Bowel Preparation Scale Right colon; 2 Transverse colon: 2 Left colon; 2 (0 = Unprepared colon segment with mucosa not seen due to solid stool that cannot be cleared. 1 = Portion of mucosa of the colon segment seen, but other areas of the colon segment not well seen due to staining, residual stool and/or opaque liquid. 2 = Minor amount of residual staining, small fragments of stool and/or opaque liquid, but mucosa of colon segment seen well. 3 = Entire mucosa of colon segment seen well with no residual staining, small fragments of stool or opaque liquid) Impression and Post Procedure Diagnosis: Endoscopy Findings: ESOPHAGUS: Small hiatal hernia 34 to 36 cms. Friable appearing esophageal mucosa - biopsies were obtained No esophagitis or Ling's. STOMACH: Moderate diffuse gastritis DUODENUM: Normal Colonoscopy Findings: Six medium to large sized polyps were removed Moderate diverticulosis seen in the sigmoid colon small hemorrhoids on retroflexed exam. Plan: Pt has a FU appointment on 08/08/25 with Camilla Aranda NP Repeat Flexible sigmoidoscopy (with colon prep) in 4-8 weeks to check polypectomy site in the rectum A summary of above findings and relevant handouts were given to the patient. BIOPSIES SHOWED: A. Stomach, antrum, biopsy: Gastric antral mucosa within normal limits; negative for Helicobacter pylori, intestinal metaplasia and dysplasia. B. Stomach, body, biopsy: Gastric body mucosa within normal limits; negative for Helicobacter pylori, intestinal metaplasia and dysplasia. C. Esophagus, distal, biopsy: Squamous mucosa within normal limits; negative for inflammation (including intraepithelial eosinophils), fungal organisms, intestinal metaplasia and dysplasia. D. Esophagus, mid, biopsy: Squamous mucosa within normal limits; negative for inflammation (including intraepithelial eosinophils), fungal organisms, intestinal metaplasia and dysplasia. E. Esophagus, proximal, biopsy: Squamous mucosa within normal limits; negative for inflammation (including intraepithelial eosinophils), fungal organisms, intestinal metaplasia and dysplasia. F. Colon, ascending, polypectomy x2: Tubular adenoma (2); negative for high- grade dysplasia. G. Colon, right, biopsy: Colonic mucosa within normal limits; negative for active, chronic or microscopic colitis. H. Colon, descending, polypectomy: Tubular adenoma; negative for high-grade dysplasia. I. Rectum, polypectomy x 2: Tubulovillous adenoma, multiple fragments, with focal high-grade dysplasia 07/25/25 Pt called and biopsy results were reviewed with her. She was advised to schedule a FU Flex Sig in 4 to 6 weeks to check polypectomy site in the rectum She reported constant LLQ pain (before her endoscopic procedures) and constant diarrhea after her procedures which appears to be subsiding
[2025-07-17 11:03] VITALS: BP 114/66; PULSE 63; RESP 20; TEMP 36.3; O2SAT 98
[2025-07-17 11:18] VITALS: BP 141/66; PULSE 56; RESP 20; TEMP 36.7; O2SAT 96
== END 2025-07-17 11:46 | disposition home or self-care (01) ==
PROVIDERS: PCP Internal Medicine; Visit Provider Internal Medicine Gastroenterology
PROC: (CPT 45385; principal; 2025-07-17 09:20)
DX: Z12.11 Encounter for screening for malignant neoplasm of colon (principal); D12.2 Benign neoplasm of ascending colon; D12.4 Benign neoplasm of descending colon; D12.8 Benign neoplasm of rectum; K57.30 Diverticulosis of large intestine without perforation or abscess without bleeding; K64.8 Other hemorrhoids; K21.9 Gastro-esophageal reflux disease without esophagitis; K29.60 Other gastritis without bleeding; K44.9 Diaphragmatic hernia without obstruction or gangrene; F17.210 Nicotine dependence, cigarettes, uncomplicated
CPT/HCPCS: 45385; 45381; 43239; 88305; 88313; 88342; J2003; J2704

== ENCOUNTER → 2025-07-17 08:19 | Outpatient (BNV) | payer OTHER, SELFPAY | PROVIDERS: PCP Internal Medicine; Visit Provider Internal Medicine Gastroenterology | DX: Z12.11 Encounter for screening for malignant neoplasm of colon (principal); D12.2 Benign neoplasm of ascending colon; D12.4 Benign neoplasm of descending colon; D12.5 Benign neoplasm of sigmoid colon; D12.8 Benign neoplasm of rectum; K57.30 Diverticulosis of large intestine without perforation or abscess without bleeding; K64.8 Other hemorrhoids; K21.9 Gastro-esophageal reflux disease without esophagitis; K29.70 Gastritis, unspecified, without bleeding | CPT/HCPCS: 43239; 45381; 45385 ==

== ENCOUNTER 2025-08-07 09:23 | Day surgery (SDC) | payer OTHER, SELFPAY ==
--- OUTSIDE RECORDS SUMMARY | 2025-08-01 12:35 | XMS_ITS | Encounter Summary ---
Author Organization [facility] Address [address] [place] [address] Care Team Providers Care Energy Rater Name Role Phone Mk Douglass MD Primary Care Provider [phone] Encounter Details Date Type Department Care Team (Latest Contact Info) Description 04/11/2025 Lab Requisition [facility] - Main Lab [address] [place] [id number] Alesia Danielson MD [address] [phone] Encounter for gynecological examination (general) (routine) without abnormal findings Social History Tobacco Use Types Packs/Day Years Used Date Smoking Tobacco: Never Assessed Comments Unknown Sex and Gender Information Value Date Recorded Sex Assigned at Not on file Legal Sex Female 9:11 AM EST Gender Identity Not on file Sexual Orientation Not on file documented as of this encounter Plan of Treatment Not on file documented as of this encounter Procedures Procedure Name Priority Date/Time Associated Diagnosis Comments PAP SMEAR Routine 04/10/2025 12:00 AM EDT Encounter for gynecological examination (general) (routine) without abnormal findings documented in this encounter Results * Pap smear (04/10/2025 12:00 AM EDT) Interpretation Negative for intraepithelial lesion or malignancy 04/13/2025 1:49 PM EDT [facility] General Categorization Negative 04/13/2025 1:49 PM EDT [facility] Specimen Adequacy Satisfactory for evaluation, endocervical/espinoza sformation zone component present 04/13/2025 1:49 PM EDT [facility] Pap Methodology Liquid Based Pap Test 04/13/2025 1:49 PM EDT [facility] Disclaimer The Pap test is a screening test which carries an inherent false negative rate. These test results should be correlated with the patient's clinical findings and history. This Pap test was processed using an automated screening system. Technical cytopathology services provided by [facility], at [address] [place] [address] (CLIA # [id number]/Ana Cristina Witt MD, Wallboard Worker.) 04/13/2025 1:49 PM EDT [facility] Console Pap Interpretation Reported 04/13/2025 1:49 PM T [facility] Brushing/Spatula Cervix uteri structure / Unknown 04/10/2025 04/11/2025 7:07 AM EDT us Alesia Danielson MD LAB CYTOLOGY ORDERABLES Final Result [facility] [address] [place] [address], documented in this encounter Visit Diagnoses Diagnosis Encounter for gynecological examination (general) (routine) without abnormal findings documented in this encounter Care Teams Energy Rater Relationship Specialty Start Date End Date Mk Douglass MD [address] [place] [id number] PCP - General Internal Medicine 04/24/25 documented as of this encounter
--- OUTSIDE RECORDS SUMMARY | 2025-08-01 12:35 | XMS_ITS | Clinical Summary ---
Author Organization [facility] Address [address] [place] [phone] Phone Care Team Providers Care Aircraft Layout Worker Name Role Phone Mk Douglass MD Primary Care Provider [phone] Family History Medical History Relation Name Comments [...] 10/12/2022 Social Influencers of Health Screening 10/12/2022 Depression Screening 11/09/2024 COVID-19 Vaccine (3 - 2025-2 6 season) 2025 07/23/2021, 07/02/2021 Influenza Vaccine (#1) 2025 6, 09/16/2007 DTaP,Tdap,and Td Vaccines (3 - Td or Tdap) 02/16/2027 02/16/2017, 07/10/2006 Breast Cancer Screening 04/24/2027 04/24/20, 12/25/2023 Cervical Cancer Screening: P ap Smear 04/10/2028 04/10/2025 RSV Immunization Adult Patients (1 - 1-dose 75+ series) 2043 HIB Vaccines Aged Out No longer eligi [...] without abnormal findings from Last 3 Months or Most Recently Relevant to Health Maintenance Results * MG Mammo Digital Screening w [...] for biopsy. PQRI CPT II 3341F Code 51465, 81064 PQRI 225 CPT II 7025F TISSUE DENSITY: The breasts are almost entirely fatty. (BI-RADS Category A) IMPRESSION: Benign. BI-RADS CATEGORY: 1 - NEGATIVE RECOMMENDATION: Screening bilateral mammogram is recommended in 1 year. Mammo Location: [facility], [address] [place] [phone] -------- FINAL REPORT -------- Dictated By: Alverto Baum Dictated Date: 04/25/2025 08:45 ET Assigned Physician: Alverto Baum Reviewed and Electronically Signed By: Alverto Baum Signed Date: 04/25/2025 08:47 ET Workstation ID: [id number] Transcribed By: Self Edit Transcribed Date: 04/25/2025 [...] and CC projection is performed in the Clean Mobile 2000-D unit. Computer aided detection utilizing the [...] MLO and CC projection is performed in theAlarm.comographe 2000-D unit. Computer aided detection utilizing the iCADsystem was utilized. FINDINGS: The breasts are again [...] for biopsy. PQRI CPT II 3341F Code 23714, 42955 PQRI 225 CPT II 7025F TISSUE DENSITY: The breasts are almost entirely fatty. (BI-RADS CategoryA) IMPRESSION: Benign. BI-RADS CATEGORY: 1 - NEGATIVE RECOMMENDATION: Screening bilateral mammogram is recommended in 1 year. Mammo Location: [facility], [address] [place] [phone] -------- FINAL REPORT -------- Dictated By: Alverto Baum Dictated Date: 04/25/2025 08:45 ET Assigned Physician: Alverto Baum Reviewed and Electronically Signed By: Alverto Baum Signed Date: 04/25/2025 08:47 ET Workstation ID: [id number] Transcribed By: Self Edit Transcribed Date: 04/25/2025 08:45 ET us Self Referral Sppl IMG BI PROCEDURES Final Resul t * Pap smear (04/10/2025 12:00 AM EDT) Interpretation Negative for intraepithelial lesion or malignancy 04/13/2025 1:49 PM EDT [facility] General Categorization Negative 04/13/2025 1:49 PM EDT [facility] Specimen Adequacy Satisfactory for evaluation, endocervical/espinoza sformation zone component present 04/13/2025 1:49 PM EDT [facility] Pap Methodology Liquid Based Pap Test 04/13/2025 1:49 PM EDT [facility] Disclaimer The Pap test is a screening test which carries an inherent false negative rate. These test results should be correlated with the patient's clinical findings and history. This Pap test was processed using an automated screening system. Technical cytopathology services provided by [facility], at [address] [place] [address] (CLIA # [id number]/Ana Cristina Witt MD, Hotel Desk Clerk.) 04/13/2025 1:49 PM EDT [facility] Console Pap Interpretation Reported 04/13/2025 1:49 PM EDT [facility] Brushing/Spatula Cervix uteri structure / Unknown 04/10/2025 04/11/2025 7:07 AM EDT us Alesia Danielson MD LAB CYTOLOGY ORDERABLES Final Result [facility] [address] [place] [address], from Last 3 Months or Most Recently Relevant to Health Maintenance [place] [address] [address] [place] [address] [place] [address] Care Teams Aircraft Layout Worker Relationship Specialty Start Date End Date Mk Douglass MD [address] [place] [phone] PCP - General Internal Medicine 04/24/25
--- NOTE | 2025-08-03 10:32 | HO.ANESPROP2 ---
Documented by User: Bianca Odonnell NP 08/03/25 10:33 HPI - Anesthesia Eval Consult details Narrative: 55 yr old female for ?Sigmoidoscopy Flexible PMFSH Active Problems Active Problems: All Active Problems History of colon polyps (Acute) Odynophagia (Acute) Dysphagia (Acute) Past Medical History Medical History Smoker Dysphagia Odynophagia Insomnia Degenerative disc disease, lumbar Anxiety Family History Family History Father Stomach cancer Family history of problems with anesthesia: No Surgical History Surgical History H/O colonoscopy Hx of section History of esophagogastroduodenoscopy History of Problems with Anesthesia: No Social History Social History Are you a primary healthcare financial analyst to a significant other at home: No Do you presently have visiting nurse or other home services: No Alcohol intake: current Comment: Rare occasions Patient Tobacco Use Status: Current everyday Tobacco user Tobacco use type: Cigarette Cigarette Packs Per Day: 1 Smoked in Last 30 Days: Yes Patient Interested in Nicotine Replacement: No Substance Use Frequency: Occasionally Have you been hit, kicked, punched, or otherwise hurt by someone within the past year? If so, by whom?: No Are you DNR?: No Advance Directives: No Advance Directives Information Provided: Yes Poor oral hygiene: No Meds Allergies Allergy/AdvReac Type Severity Reaction Status Date / Time carisoprodol (From Soma) Allergy Unknown Unknown Verified 08/07/25 10:06 codeine Allergy Unknown Unknown Verified 08/07/25 10:06 medroxyprogesterone Allergy Unknown Unknown Verified 08/07/25 10:06 Penicillins Allergy Unknown Unknown Verified 08/07/25 10:06 Home Medications ?Medication ?Instructions ?Recorded ?Confirmed ?Last Taken ?Type ascorbic acid 100 mg-zinc sulfate tab PO 02/09/25 Unknown History 200 mg tablet cholecalciferol (vitamin D3) 25 25 mcg PO DAILY 02/09/25 08/07/25 Unknown History mcg (1,000 unit) capsule crisaborole 2 % topical ointment 1 appl topical DAILY 02/09/25 08/07/25 Unknown History (Eucrisa) cyanocobalamin (vitamin B-12) 1,000 mcg PO DAILY 02/09/25 08/07/25 Unknown History 1,000 mcg capsule lorazepam 0.5 mg tablet 0.5 mg PO DAILY PRN Anxiety 02/09/25 08/07/25 Unknown History multivitamin 1 tab PO DAILY 02/09/25 08/07/25 Unknown History cyclosporine 0.05 % eye drops in a 1 drp ophthalmic (eye) Q12H 02/13/25 08/07/25 Unknown History dropperette (Restasis) Assessment and Plan Final Anesthetic Review Family History of Problems with Anesthesia: No History of Problems with Anesthesia: No Documented by User: Lam Maddox MD 08/07/25 11:17 [facility] Past Medical History Medical History Smoker Dysphagia Odynophagia Insomnia Degenerative disc disease, lumbar Anxiety Family History Family History Father Stomach cancer Surgical History Surgical History H/O colonoscopy Hx of section History of esophagogastroduodenoscopy Social History Social History Are you a primary healthcare financial analyst to a significant other at home: No Do you presently have visiting nurse or other home services: No Alcohol intake: current Comment: Rare occasions Patient Tobacco Use Status: Current everyday Tobacco user Tobacco use type: Cigarette Cigarette Packs Per Day: 1 Smoked in Last 30 Days: Yes Patient Interested in Nicotine Replacement: No Substance Use Frequency: Occasionally Have you been hit, kicked, punched, or otherwise hurt by someone within the past year? If so, by whom?: No Are you DNR?: No Advance Directives: No Advance Directives Information Provided: Yes Poor oral hygiene: No Meds Allergies Allergy/AdvReac Type Severity Reaction Status Date / Time carisoprodol (From Soma) Allergy Unknown Unknown Verified 08/07/25 10:06 codeine Allergy Unknown Unknown Verified 08/07/25 10:06 medroxyprogesterone Allergy Unknown Unknown Verified 08/07/25 10:06 Penicillins Allergy Unknown Unknown Verified 08/07/25 10:06 Home Medications ?Medication ?Instructions ?Recorded ?Confirmed ?Last Taken ?Type ascorbic acid 100 mg-zinc sulfate tab PO 02/09/25 Unknown History 200 mg tablet cholecalciferol (vitamin D3) 25 25 mcg PO DAILY 02/09/25 08/07/25 Unknown History mcg (1,000 unit) capsule crisaborole 2 % topical ointment 1 appl topical DAILY 02/09/25 08/07/25 Unknown History (Eucrisa) cyanocobalamin (vitamin B-12) 1,000 mcg PO DAILY 02/09/25 08/07/25 Unknown History 1,000 mcg capsule lorazepam 0.5 mg tablet 0.5 mg PO DAILY PRN Anxiety 02/09/25 08/07/25 Unknown History multivitamin 1 tab PO DAILY 02/09/25 08/07/25 Unknown History cyclosporine 0.05 % eye drops in a 1 drp ophthalmic (eye) Q12H 02/13/25 08/07/25 Unknown History dropperette (Restasis) Exam Airway Mallampati Class: II TM Dist: <=3cm Neck ROM: Full Loose/Missing/Broken Teeth: No Heart: ok Lungs: ok Assessment and Plan Assessment Anesthesia Assessment: Anesthesia Plan Discussed and Chart Reviewed Final Anesthetic Review NPO: Yes ASA Class: II Final Preanesthetic Review: No Changes in Pt Med Stat, Meds/Allgs Chart Reviewed, Consent Obtained/Reviewed and Anes Risks/Benef Reviewed Patient Risk: Low Procedure Risk: Low Anesthetic Plan Anesthetic Plan: MAC: and Agree w/ Assess. and Plan Disposition: Standard PACU
[2025-08-07] MEDS: Lactated Ringers 1,000 ML 100 ML IVCONT (10:10)
[2025-08-07 10:19] VITALS: BP 104/63; PULSE 63; RESP 18; TEMP 36.7; O2SAT 96
--- NOTE | 2025-08-07 10:22 | MHC.SHP ---
Pre-Procedural Eval Section A - 24 Hr Update-Section A only Date of Service: 08/07/25 The patient is an INPATIENT: No Changes since office visit: Yes Patient answered all questions; No Cold of Flu in the past 2 weeks, No New Medical Problems and No Changes in Medication The patient has been examined within 24 hours of the surgical procedure. The History & Physical has been completed within 30 days and I have reviewed it.: Yes Section B - Complete if H&P > 30 days Chief Complaint: Benign neoplasm of transverse colon Allergies: Allergies Allergy/AdvReac Type Severity Reaction Status Date / Time carisoprodol (From Soma) Allergy Unknown Unknown Verified 08/07/25 10:06 codeine Allergy Unknown Unknown Verified 08/07/25 10:06 medroxyprogesterone Allergy Unknown Unknown Verified 08/07/25 10:06 Penicillins Allergy Unknown Unknown Verified 08/07/25 10:06 Exam Surgical H&P Exam: Normal: Heart, Normal: Lungs, Normal: Extremities and Normal: Abdomen Plan Diagnosis/Plan: Change (Proceed with Flexible sigmoidoscopy) I have reviewed the history and physical and performed a pertinent physical examination on my patient. No changes have occurred unless specified. Time Spent With Patient Time: Total time managing care of this patient today ____ minutes.
[2025-08-07 11:53] VITALS: BP 104/68; PULSE 64; RESP 20; TEMP 36.3; O2SAT 95
[2025-08-07 12:08] VITALS: BP 112/76; PULSE 56; RESP 16; TEMP 36.2; O2SAT 99
--- NOTE | 2025-08-07 12:21 | P.OPN-COLO_ITS ---
Colonoscopy Operative Note Operative Note Date of Service: 08/07/25 Narrative: FLEXIBLE SIGMOIDOSCOPY TILL 30 CMS WITH SNARE POLYPECTOMY AND SUBMUCOSAL INJECTION Pre-op diagnosis: Follow-up of a large rectal polyp with high-grade dysplasia. Post-op diagnosis:? Colon polyp, Diverticulosis, hemorrhoids Endoscopist:? Jan Manuel MD Anesthesia:?MAC Consent: Indications for the procedure and potential complications of bleeding, perforation, reaction to medications and missed diagnosis were discussed with the patient and informed consent was obtained. Instrument: Olympus PCF H 190 L variable stiffness pediatric colonoscope Monitoring: Vital signs and clinical assessment, intermittent blood pressure monitoring, continuous EKG monitoring, Pulse oximetry and Carbon Dioxide monitoring were done throughout the procedure. Please see anesthesia flowsheet. Procedure: The patient was placed in the left lateral decubitis position and pre-procedure medications were administered. After a digital rectal examination of the ano-rectum, the video colonoscope was inserted into the rectum and advanced through the colon to 30 cms into the sigmoid colon. The colonoscope was slowly withdrawn in a retrograde panoramic fashion and the colon mucosa was carefully examined including a retroflexed view of the rectum. Findings and interventions are described below. Procedure Difficulty: without difficulty Findings: Sigmoid Colon: Moderate diverticulosis Rectum: Polypectomy site visualized at 8 cms with a hemoclip in place. There was residual polypoid tissue at the polypectomy site which was raised with 5 cc of Eleview and removed piecemeal with a stiff hot snare. Polypectomy site was treated with cautery using the snare tip. Ano-rectum: Moderate internal hemorrhoids Colon preparation: Excellent [place] Bowel Preparation Scale Left colon; 3 (0 = Unprepared colon segment with mucosa not seen due to solid stool that cannot be cleared. 1 = Portion of mucosa of the colon segment seen, but other areas of the colon segment not well seen due to staining, residual stool and/or opaque liquid. 2 = Minor amount of residual staining, small fragments of stool and/or opaque liquid, but mucosa of colon segment seen well. 3 = Entire mucosa of colon segment seen well with no residual staining, small fragments of stool or opaque liquid) Impression and Post Procedure Diagnosis: Colonoscopy Findings: There was residual polypoid tissue at the polypectomy site which was raised with 5 cc of Eleview and removed piecemeal with a stiff hot snare. Polypectomy site was treated with cautery using the snare tip. Moderate diverticulosis seen in the sigmoid colon Moderate hemorrhoids on retroflexed exam. Plan: Pt has a FU appointment on 08/08/25 with Camilla Aranda NP Repeat Colonoscopy in 6 months if polyps are adenomatous. Above findings were reviewed with the patient and relevant handouts were given and the discharge area. BIOPSIES SHOWED: Rectum, polypectomy: Fragments of tubulovillous adenoma; negative for high-grade dysplasia or carcinoma Patient called and biopsy results were reviewed with her. She was advised repeat flexible sigmoidoscopy in 6 months - placed on procedure recall list. Patient was placed on the colonoscopy recall list for repeat colonoscopy in 2 years
== END 2025-08-07 12:38 | disposition home or self-care (01) ==
PROVIDERS: PCP Internal Medicine; Visit Provider Internal Medicine Gastroenterology
PROC: 0DJD8ZZ Inspection of Lower Intestinal Tract, Via Natural or Artificial Opening Endoscopic (ICD-10-PCS; CPT 45330; principal; 2025-08-07 11:10)
DX: Z12.11 Encounter for screening for malignant neoplasm of colon (principal); Z86.0101 Personal history of adenomatous and serrated colon polyps; D12.8 Benign neoplasm of rectum; K57.30 Diverticulosis of large intestine without perforation or abscess without bleeding; K64.8 Other hemorrhoids; Z88.0 Allergy status to penicillin; Z88.5 Allergy status to narcotic agent; Z88.8 Allergy status to other drugs, medicaments and biological substances; F17.210 Nicotine dependence, cigarettes, uncomplicated
CPT/HCPCS: 45338; 45335; 88305; J2003; J2704

== ENCOUNTER → 2025-08-07 09:23 | Outpatient (BNV) | payer OTHER, SELFPAY | PROVIDERS: PCP Internal Medicine; Visit Provider Internal Medicine Gastroenterology | DX: D12.8 Benign neoplasm of rectum (principal); K57.30 Diverticulosis of large intestine without perforation or abscess without bleeding; K64.8 Other hemorrhoids | CPT/HCPCS: 45335; 45338 ==

== ENCOUNTER 2025-08-08 15:48 | Outpatient (AMB) | payer OTHER, SELFPAY ==
--- NOTE | 2025-08-08 15:49 | A.OFFVIS_ITS ---
Vital Signs 08/08/25 15:50 Height 5 ft 4 in Weight 165 lb BMI 28.3 BP 128/60 Blood Pressure Location Rt brachial Position Sitting Pulse 68 Pulse Source Pulse Oximeter Pulse Oximetry (%) 96 Oxygen Delivery Method Room Air Intake Visit Reasons: s/p egd, colo Kaleb Intake Note: Est pt for mgmt of chronic GERD + Abd pain. S.P. Double CC: Pt denies any GI sx or concerns at this time. Road Supervisor Of Engines Required: No Accompanied by: Self / Same As Patient Allergies carisoprodol (From [employer]) Allergy (Unknown, Verified 08/08/25 15:53) Unknown codeine Allergy (Unknown, Verified 08/08/25 15:53) Unknown medroxyprogesterone Allergy (Unknown, Verified 08/08/25 15:53) Unknown Penicillins Allergy (Unknown, Verified 08/08/25 15:53) Unknown HPI HPI s/p egd, colo Kaleb: Details: LAST VISIT: Odynophagia Dysphagia Postprandial epigastric pain Gastroesophageal reflux disease Constipation Plan Patient will continue taking pantoprazole daily. Avoid dietary triggers and late night snacking. Staying upright for minimal 3 hours after meals discussed with patient. Patient will continue taking Dulcolax. Increase fluid intake and activity to promote better bowel motility. All her lab work was discussed with her today. Patient will be going for upper endoscopy in her 1st colonoscopy. Patient denies any issues with anesthesia in the past. No history of sleep apnea. Not on any anticoagulation medication. Denies any cardiac or respiratory symptoms. What to expect before during and after procedure discussed with patient. Stressed the importance of good bowel prep and clear liquid diet day before procedure. Patient will follow-up after the procedure, sooner on as needed basis. She is agreeable to this plan and verbalizes understanding of instructions. She was given the opportunity to ask questions and all questions answered. UPPER ENDOSCOPY AND COLONOSCOPY Findings: Larynx: Normal Esophagus: GE junction at 34 cms, small hiatal hernia 34 to 36 cms. Friable appearing esophageal mucosa - biopsies were obtained No esophagitis or Ling's. Stomach: Moderate diffuse gastric erythema - biopsies were obtained from the antrum. Grade 2 flap valve on retroflexed examination of the cardia. Duodenum: Normal bulb and descending duodenum Intervention: Biopsies as noted above COLONOSCOPY PROCEDURE NOTE Instrument: Olympus PCF H 190 L variable stiffness pediatric colonoscope Monitoring: Vital signs and clinical assessment, intermittent blood pressure monitoring, continuous EKG monitoring, Pulse oximetry and Carbon Dioxide monitoring were done throughout the procedure. Please see anesthesia flowsheet. Colon withdrawl time was 48 minutes. Procedure: The patient was placed in the left lateral decubitis position and pre-procedure medications were administered. After a digital rectal examination of the ano-rectum, the video colonoscope was inserted into the rectum and advanced through the colon to the cecum. The colonoscope was slowly withdrawn in a retrograde panoramic fashion and the colon mucosa was carefully examined including a retroflexed view of the rectum. Findings and interventions are described below. Procedure Difficulty: without difficulty Findings: Terminal Ileum: Not evaluated Cecum: Normal Ascending Colon: A 10 - 12 mm sessile polyp in the distal AC - removed with a hot snare. A 7-8 mm sessile polyp in the distal AC - removed with a hot snare Transverse Colon: Normal Descending Colon: A 7-8 mm sessile polyp - removed with a hot snare Sigmoid Colon: A 12-15 mm sessile polyp - removed with a hot snare and polyp was not retrieved. Moderate diverticulosis Rectum: A 2 cms sessile polyp at 8 cms - removed with a hot snare. A 5 cms villous appearing polyp with a broad base at 6 cms. Polyp was removed piecemeal with a hot snare. Polypectomy site was closed with 3 hemoclips and marked by Georgie ink. Ano-rectum: Small internal hemorrhoids Colon preparation: Good after some irrigation. Independence Bowel Preparation Scale Right colon; 2 Transverse colon: 2 Left colon; 2 (0 = Unprepared colon segment with mucosa not seen due to solid stool that cannot be cleared. 1 = Portion of mucosa of the colon segment seen, but other areas of the colon segment not well seen due to staining, residual stool and/or opaque liquid. 2 = Minor amount of residual staining, small fragments of stool and/or opaque liquid, but mucosa of colon segment seen well. 3 = Entire mucosa of colon segment seen well with no residual staining, small fragments of stool or opaque liquid) Impression and Post Procedure Diagnosis: Endoscopy Findings: ESOPHAGUS: Small hiatal hernia 34 to 36 cms. Friable appearing esophageal mucosa - biopsies were obtained No esophagitis or Ling's. STOMACH: Moderate diffuse gastritis DUODENUM: Normal Colonoscopy Findings: Six medium to large sized polyps were removed Moderate diverticulosis seen in the sigmoid colon small hemorrhoids on retroflexed exam. Plan: Pt has a FU appointment on 08/08/25 with Camilla Aranda NP Repeat Flexible sigmoidoscopy (with colon prep) in 4-8 weeks to check polypectomy site in the rectum A summary of above findings and relevant handouts were given to the patient. BIOPSIES SHOWED: A. Stomach, antrum, biopsy: Gastric antral mucosa within normal limits; negative for Helicobacter pylori, intestinal metaplasia and dysplasia. B. Stomach, body, biopsy: Gastric body mucosa within normal limits; negative for Helicobacter pylori, intestinal metaplasia and dysplasia. C. Esophagus, distal, biopsy: Squamous mucosa within normal limits; negative for inflammation (including intraepithelial eosinophils), fungal organisms, intestinal metaplasia and dysplasia. D. Esophagus, mid, biopsy: Squamous mucosa within normal limits; negative for inflammation (including intraepithelial eosinophils), fungal organisms, intestinal metaplasia and dysplasia. E. Esophagus, proximal, biopsy: Squamous mucosa within normal limits; negative for inflammation (including intraepithelial eosinophils), fungal organisms, intestinal metaplasia and dysplasia. F. Colon, ascending, polypectomy x2: Tubular adenoma (2); negative for high- grade dysplasia. G. Colon, right, biopsy: Colonic mucosa within normal limits; negative for active, chronic or microscopic colitis. H. Colon, descending, polypectomy: Tubular adenoma; negative for high-grade dysplasia. I. Rectum, polypectomy x 2: Tubulovillous adenoma, multiple fragments, with focal high-grade dysplasia 07/25/25 Pt called and biopsy results were reviewed with her. She was advised to schedule a FU Flex Sig in 4 to 6 weeks to check polypectomy site in the rectum She reported constant LLQ pain (before her endoscopic procedures) and constant diarrhea after her procedures which appears to be subsiding REPEAT SIGMOIDOSCOPY 08/07/2025 Findings: Sigmoid Colon: Moderate diverticulosis Rectum: Polypectomy site visualized at 8 cms with a hemoclip in place. There was residual polypoid tissue at the polypectomy site which was raised with 5 cc of Eleview and removed piecemeal with a stiff hot snare. Polypectomy site was treated with cautery using the snare tip. Ano-rectum: Moderate internal hemorrhoids Colon preparation: Excellent Independence Bowel Preparation Scale Left colon; 3 (0 = Unprepared colon segment with mucosa not seen due to solid stool that cannot be cleared. 1 = Portion of mucosa of the colon segment seen, but other areas of the colon segment not well seen due to staining, residual stool and/or opaque liquid. 2 = Minor amount of residual staining, small fragments of stool and/or opaque liquid, but mucosa of colon segment seen well. 3 = Entire mucosa of colon segment seen well with no residual staining, small fragments of stool or opaque liquid) Impression and Post Procedure Diagnosis: Colonoscopy Findings: There was residual polypoid tissue at the polypectomy site which was raised with 5 cc of Eleview and removed piecemeal with a stiff hot snare. Polypectomy site was treated with cautery using the snare tip. Moderate diverticulosis seen in the sigmoid colon Moderate hemorrhoids on retroflexed exam. Plan: Repeat Colonoscopy in 6 months if polyps are adenomatous. Above findings were reviewed with the patient and relevant handouts were given and the discharge area. PATHOLOGY RESULTS Diagnosis Rectum, polypectomy: Fragments of tubulovillous adenoma; negative for high-grade dysplasia or carcinoma TODAY'S VISIT Patient is here today for follow-up to discuss upper endoscopy and colonoscopy results. Patient had her upper endoscopy and colonoscopy July 17, large polypectomy in rectum and patient had sigmoidoscopy done on August 07. Tubulovillous adenoma found on repeat sigmoidoscopy. Previously patient had tubular adenoma in the ascending colon and descending colon. Patient denies any ill effects from the prep, anesthesia or procedure itself. Patient reports that she has been doing fairly well. Denies any melena, hematochezia, unintentional weight loss or ribbon like stools. Patient denies any dyspepsia, dysphagia or odynophagia. Patient is currently taking senna as needed. Reports that she is moving her bowels without any issues. Take pantoprazole every morning and reports that it has been working for her. ? [facility] Medical History (Updated 08/08/25 @ 16:39 by Dee Aranda [facility]) Diverticulosis Tubular adenoma Tubulovillous adenoma of rectum Smoker Dysphagia Odynophagia Insomnia Degenerative disc disease, lumbar Anxiety Surgical History (Updated 08/08/25 @ 15:57 by CHRISTIAN Scales) H/O sigmoidoscopy H/O colonoscopy Hx of section History of esophagogastroduodenoscopy Family History Father Stomach cancer Social History Are you a primary home health care respiratory therapist to a significant other at home: No Do you presently have visiting nurse or other home services: No Alcohol intake: current Comment: Rare occasions Patient Tobacco Use Status: Current everyday Tobacco user Tobacco use type: Cigarette Cigarette Packs Per Day: 1 Review of Systems Const Denies weight gain and Denies weight loss ENT Reports no additional complaints, Denies dysphagia and Denies odynophagia Card Reports no additional complaints Resp Reports no additional complaints GI Denies abdominal pain, Denies belching, Denies melena, Denies bloating, Denies change in bowel habits, Denies dysphagia, Denies excessive flatus, Denies dyspepsia, Denies heartburn, Denies diarrhea, Denies loose stools, Denies nausea, Denies odynophagia and Denies vomiting Reports no additional complaints Musc Reports no additional complaints Neuro Reports no additional complaints Psych Reports no additional complaints Endo Reports no additional complaints Physical Exam Vital Signs: Last Vital Signs Pulse 68 08/08/25 15:50 BP 128/60 08/08/25 15:50 Pulse Ox 96 08/08/25 15:50 Oxygen Delivery Method Room Air 08/08/25 15:50 BMI result Body Mass Index 28.3 Const General: healthy appearing, no acute distress and well developed Nutritional Appearance: well nourished and obese Orientation/consciousness: patient oriented x3 Resp Effort & Inspection: normal respiratory effort, able to speak in complete sentences, no tracheal deviation and symmetric chest movement Auscultation: clear to auscultation bilaterally Cardio Rate: regular rate GI Inspection: Yes normal to inspection, No distended and Yes obesity Palpation (GI): Soft to palpation, not firm, nontender and No hepatosplenomegaly present Auscultation: normal bowel sounds General: Yes no CVA tenderness Back/Spine/Pelvis Back: no CVA tenderness Skin General skin exam: elasticity normal, turgor normal and dry skin Neuro General: patient oriented x3 Psych Appearance: grossly normal Mental Status: mental status grossly normal Assessment & Plan Assessment & Plan (1) History of colon polyps: Code(s): Z86.0100 - Personal history of colon polyps, unspecified Category: Medical (2) Dysphagia: Code(s): R13.10 - Dysphagia, unspecified Category: Medical Qualifiers: Dysphagia type: oropharyngeal phase Qualified Code(s): R13.12 - Dysphagia, oropharyngeal phase (3) Tubulovillous adenoma of rectum: Code(s): D12.8 - Benign neoplasm of rectum Category: Medical (4) Tubular adenoma: Code(s): D36.9 - Benign neoplasm, unspecified site Category: Medical (5) Diverticulosis: Code(s): K57.90 - Diverticulosis of intestine, part unspecified, without perforation or abscess without bleeding Category: Medical (6) Postprandial epigastric pain: Code(s): R10.13 - Epigastric pain (7) Gastroesophageal reflux disease: Code(s): K21.9 - Gastro-esophageal reflux disease without esophagitis Qualifiers: Esophagitis presence: esophagitis presence not specified Qualified Code(s): K21.9 - Gastro-esophageal reflux disease without esophagitis Plan Patient will continue pantoprazole. Avoid dietary triggers and late night snacking. Staying upright for minimum 3 hours after meals discussed with patient. Patient will continue high-fiber diet. Patient may take [id number] fiber supplements with pre and probiotics. Patient will return in 4 months to discuss and set up repeat colonoscopy as recommended by Dr. Manuel. Patient is agreeable to current plan of care and verbalizes understanding of instructions. She was given the opportunity to ask questions and all questions answered. Thank you for allowing me to participate in her care is Coding Level of Care Code Est Pt Level 4 (05366) Complex EM visit Add On G2211 Diagnoses History of colon polyps Z86.0100 Oropharyngeal dysphagia R13.12 Dysphagia type: oropharyngeal phase Tubulovillous adenoma of rectum D12.8 Tubular adenoma D36.9 Diverticulosis K57.90 Postprandial epigastric pain R10.13 Gastroesophageal reflux disease, unspecified whether esophagitis present K21.9 Esophagitis presence: esophagitis presence not specified Time Spent (min) 40 Comment 25 minutes spent with patient and additional 15 minutes spent reviewing her records
[2025-08-08 15:50] VITALS: BP 128/60; PULSE 68; O2SAT 96; BMI 28.3
--- OUTSIDE RECORDS SUMMARY | 2025-08-08 16:59 | XMS_ITS | Encounter Summary ---
Author Organization [facility] Address [address] [place] [address] Care Team Providers Care Inspector Balance Truing Name Role Phone Mk Douglass MD Primary Care Provider [phone] Encounter Details Date Type Department Care Team (Latest Contact Info) Description 04/11/2025 Lab Requisition [facility] - Main Lab [address] [place] [phone] Alesia Danielson MD [address] [phone] Encounter for gynecological examination (general) (routine) without [...] lesion or malignancy 04/13/2025 1:[address] [facility] General Categorization Negative 04/13/2025 1:49 PM EDT [facility] Specimen Adequacy Satisfactory for evaluation, endocervical/espinoza sformation zone component present 04/13/2025 1:49 PM EDT [facility] Pap Methodology Liquid Based Pap Test 04/13/2025 1:49 PM EDT [facility] Disclaimer The Pap test is a screening test which carries an inherent false negative rate. These test results should be correlated with the patient's clinical findings and history. This Pap test was processed using an automated screening system. Technical cytopathology services provided by [facility], at [address] [place] [address] (CLIA # [id number]/Ana Cristina Witt MD, Supervisor [employer].) 04/13/2025 1:49 PM EDT [facility] Console Pap Interpretation Reported 04/13/2025 1:49 PM T [facility] Brushing/Spatula Cervix uteri structure / Unknown 04/10/2025 04/11/2025 7:07 AM EDT us Alesia Danielson MD LAB CYTOLOGY ORDERABLES Final Result [facility] [address] [place] [address], documented in this encounter Visit Diagnoses Diagnosis Encounter for gynecological examination (general) (routine) without abnormal findings documented in this encounter Care Teams Inspector Balance Truing Relationship Specialty Start Date End Date Mk Douglass MD [address] [place] [phone] PCP - General Internal Medicine 04/24/25 documented as of this encounter
--- OUTSIDE RECORDS SUMMARY | 2025-08-08 16:59 | XMS_ITS | Clinical Summary ---
Author Organization [facility] Address [address] [place] [phone] Phone Care Team Providers Care Tufter Name Role Phone Mk Douglass MD Primary Care Provider [phone] Family History Medical History Relation Name Comments [...] for biopsy. PQRI CPT II 3341F Code 90187, 86088 PQRI 225 CPT II 7025F TISSUE DENSITY: The breasts are almost entirely fatty. (BI-RADS Category A) IMPRESSION: Benign. BI-RADS CATEGORY: 1 - NEGATIVE RECOMMENDATION: Screening bilateral mammogram is recommended in 1 year. Mammo Location: [facility], [address] [place] [phone] -------- FINAL REPORT -------- Dictated By: Alverto Baum Dictated Date: 04/25/2025 08:45 ET Assigned Physician: Alverto Baum Reviewed and Electronically Signed By: Alverto Baum Signed Date: 04/25/2025 08:47 ET Workstation ID: [id number] Transcribed By: Self Edit Transcribed Date: 04/25/2025 [...] and CC projection is performed in the [employer] [place] 2000-D unit. Computer aided detection utilizing the [...] MLO and CC projection is performed in theVdancerographe 2000-D unit. Computer aided detection utilizing the [...] for biopsy. PQRI CPT II 3341F Code 29965, 16745 PQRI 225 CPT II 7025F TISSUE DENSITY: The breasts are almost entirely fatty. (BI-RADS CategoryA) IMPRESSION: Benign. BI-RADS CATEGORY: 1 - NEGATIVE RECOMMENDATION: Screening bilateral mammogram is recommended in 1 year. Mammo Location: [facility], [address] [place] [id number] -------- FINAL REPORT -------- Dictated By: Alverto Baum Dictated Date: 04/25/2025 08:45 ET Assigned Physician: Alverto Baum Reviewed and Electronically Signed By: Alverto Baum Signed Date: 04/25/2025 08:47 ET Workstation ID: [id number] Transcribed By: Self Edit Transcribed Date: 04/25/2025 08:45 ET us Self Referral Sppl IMG BI PROCEDURES Final Resul t * Pap smear (04/10/2025 12:00 AM EDT) Interpretation Negative for intraepithelial lesion or malignancy 04/13/2025 1:49 PM EDT [facility] General Categorization Negative 04/13/2025 1:49 PM EDT [facility] Specimen Adequacy Satisfactory for evaluation, endocervical/espinoza sformation zone component present 04/13/2025 1:49 PM EDT [facility] Pap Methodology Liquid Based Pap Test 04/13/2025 1:49 PM EDT [facility] Disclaimer The Pap test is a screening test which carries an inherent false negative rate. These test results should be correlated with the patient's clinical findings and history. This Pap test was processed using an automated screening system. Technical cytopathology services provided by [facility], at [address] [place] [address] (CLIA # [id number]/Ana Cristina Witt MD, Supervisor [employer].) 04/13/2025 1:49 PM EDT [facility] Console Pap Interpretation Reported 04/13/2025 1:49 PM EDT [facility] Brushing/Spatula Cervix uteri structure / Unknown 04/10/2025 04/11/2025 7:07 AM EDT us Alesia Danielson MD LAB CYTOLOGY ORDERABLES Final Result [facility] [address] [place] [address], from Last 3 Months or Most Recently Relevant to Health Maintenance [place] [address] [place] [address] [employer] Care Teams Tufter Relationship Specialty Start Date End Date Mk Douglass MD [address] [place] [phone] PCP - General Internal Medicine 04/24/25
== END 2025-08-08 16:27 | disposition home or self-care (01) ==
LOC: HO.HGI 15:49
PROVIDERS: PCP Internal Medicine; Visit Provider Nurse Practitioner Family
DX: Z86.0100 Personal history of colon polyps, unspecified (principal); R13.12 Dysphagia, oropharyngeal phase; D12.8 Benign neoplasm of rectum; D36.9 Benign neoplasm, unspecified site; K57.90 Diverticulosis of intestine, part unspecified, without perforation or abscess without bleeding; R10.13 Epigastric pain; K21.9 Gastro-esophageal reflux disease without esophagitis
CPT/HCPCS: 99214

== ENCOUNTER → 2025-08-08 15:48 | Outpatient (BNVA) | payer OTHER, SELFPAY | PROVIDERS: PCP Internal Medicine; Visit Provider Nurse Practitioner Family | DX: R13.12 Dysphagia, oropharyngeal phase (principal); D12.8 Benign neoplasm of rectum; D36.9 Benign neoplasm, unspecified site; K57.90 Diverticulosis of intestine, part unspecified, without perforation or abscess without bleeding; R10.13 Epigastric pain; K21.9 Gastro-esophageal reflux disease without esophagitis | CPT/HCPCS: 99212 ==